=== PATIENT | male | born 1990 | race Caucasian/White ===

== ENCOUNTER 2018-02-15 19:12 | Emergency (ER) | payer OTHER ==
--- NOTE | 2018-02-15 19:18 | ER Report ---
History and Physical Time Seen By MD: 19:18 HPI/ROS CHIEF COMPLAINT: Laceration HISTORY OF PRESENT ILLNESS: This is a 27-year-old male who presents to the emergency department for laceration to his chin. Patient states that about an hour to an hour and half ago he was hiking slipped and fell down hitting his chin on a rock, no loss of consciousness. Patient states that his chin began to bleed desatted to come in for further evaluation wasn't sure if he needed sutures. No other injuries. No chest pain or source of breath, rashes or any other injuries. REVIEW OF SYSTEMS: Respiratory: No cough, no dyspnea. Cardiovascular: No chest pain, no palpitations. Gastrointestinal: No vomiting, no abdominal pain. Musculoskeletal: No back pain. Integument: As above. Allergies: Coded Allergies: No Known Allergies (Verified Allergy, Mild, 04/24/11) Home Meds Discontinued Reported Medications [None] No Conflict Check, 0 Refills 04/24/11 Past Medical/Surgical History Patient has a past medical and surgical history of broken hand, wears glasses, hearing impaired bilaterally, left hearing is worse than the right, ear surgery , skin graft to the eardrum. Reviewed Nurses Notes: Yes Hx Smoking: No Smoking Status: Never Smoker Hx Substance Use Disorder: No Hx Alcohol Use: No Constitutional Vital Sign - Last 24 Hours 02/15/18 19:16 Temp 98.9 Pulse 105 Resp 18 B/P (MAP) 147/ Pulse Ox 96 O2 Delivery Room Air Physical Exam General Appearance: The patient is alert, has no immediate need for airway protection and no current signs of toxicity. Eyes: Pupils equal and round no injection. Respiratory: Chest is non tender, lungs are clear to auscultation. Cardiac: regular rate and rhythm. Gastrointestinal: Abdomen is soft and non tender, no masses, bowel sounds normal. Musculoskeletal: Neck: Neck is supple and non tender. No C-spine tenderness. Extremities have full range of motion and are non tender. Skin: Laceration and abrasion to the chin. DIFFERENTIAL DIAGNOSIS: After history and physical exam differential diagnosis was considered for laceration and abrasion. Medical Decision Making ED Course/Re-evaluation ED Course The patient was admitted to room. A history physical were obtained. Differential diagnoses were considered. After the wound was cleansed the area did not require sutures at this time, we elected to Dermabond the wound. Patient states that he is okay with this. The wound was repaired, patient tolerated well. Patient was instructed to monitor for signs of infection, follow -up with his primary care provider, no hot tubs or pools for the next 7 days. Patient had no other questions or concerns at this time and discharged home. Procedure: Laceration repair. Verbal consent was obtained from the patient. The 0.25cm laceration on the chin. The wound was scrubbed, draped and explored to its base with a gloved finger. There were no deep structures involved. The wound was repaired with Dermabond. The wound repair was simple. The procedure was performed by myself. Decision to Disposition Date: Feb 15, 2018 Decision to Disposition Time: 19:47 Depart Departure Latest Vital Signs Vital Signs Date Time Temp Pulse Resp B/P (MAP) Pulse Ox O2 Delivery O2 Flow Rate FiO2 02/15/18 19:16 98.9 105 18 147/ 96 Room Air Impression: Primary Impression: Laceration Condition: Improved Disposition: HOME OR SELF-CARE Patient Instructions: Acute Wound Care (ED), Laceration (ED) Additional Instructions: Your wound was closed with medical grade glue, do not apply bacitracin or any other antibiotic ointment to the wound as it will erode the glue. Monitor for signs of infection such as redness, swelling, drainage. No hot tubbing or swimming for at least one week. Drink plenty of fluids. Get plenty of rest. Follow-up with your primary care provider as scheduled. Return to the emergency department for any other concerns or worsening symptoms. Be sure to apply sunscreen to the wound for at least 1 year. AMAURI ESCALANTEP-BC Feb 15, 2018 19:18
[2018-02-15] MEDS ORDERED: DIPHTH/TETANUS/ACEL. PERTUSSIS IM ONLY ONE (19:25)
[2018-02-15 20:00] VITALS: BP 122/82
== END 2018-02-15 20:14 | disposition home or self-care (01) ==
LOC: ER 19:19
DX: S01.81XA Laceration without foreign body of other part of head, initial encounter (principal); W01.198A Fall on same level from slipping, tripping and stumbling with subsequent striking against other object, initial encounter; Y93.01 Activity, walking, marching and hiking
CPT/HCPCS: 90471; 90715; 99283